=== PATIENT | male | born 1945 | race Caucasian/White ===

== ENCOUNTER 2017-07-31 11:02 | Emergency (ER) | payer OTHER ==
[~2017-07-31] VITALS: Ht 182.9 cm; Wt 117.9 kg
[2017-07-31] MEDS: HYDROcodone-ACET 10/325MG TAB PO ONE ×2 (12:30→12:40)
[2017-07-31] MEDS ORDERED: FUROSEMIDE 40 MG/4 ML VIAL IV ONE (12:30)
[2017-07-31 12:58] LABS: Basophils # (auto) 0.1 uL; Basophils % (auto) 0.7 % (0.0-2.0); Eosinophils # (auto) 0.1 uL; Eosinophils % (auto) 1.4 % (0.0-7.0); Lymphocytes # (auto) 1.5 uL; Monocytes # (auto) 0.8 uL; Nucleated Red Blood Cells % 0.1 %; Red Cell Distribution Width 18.1 % (11.8-14.3)
[2017-07-31 13:00] LABS: Hematocrit 33.8 % (41.0-53.0); Hemoglobin 10.7 g/dL (13.5-17.5); Mean Corpuscular Hgb Conc. 31.5 g/dL (32.0-36.0); Mean Corpuscular Volume 73.1 fL (80.0-100.0); Mean Platelet Volume 8.3 fL (6.9-10.8); Monocytes % (auto) 9.9 % (0.0-12.0); Neutrophils # (auto) 5.3 uL; Platelet Count (auto) 225 10^3/uL (140-450); White Blood Cell 7.7 10^3/uL (4.4-10.8)
[2017-07-31] MEDS ORDERED: FUROSEMIDE 40 MG TAB PO ONE (13:00)
[2017-07-31 13:03] LABS: Albumin 3.7 g/dL (3.4-5.0); Anion Gap 10 (5-15); Aspartate Aminotransferase 28 U/L (15-37); BUN/Creatinine Ratio 13.3; Blood Urea Nitrogen 15 mg/dL (7-18); Calcium 8.8 mg/dL (8.5-10.1); Carbon Dioxide 23 mmol/L (21-32); Chloride 107 mmol/L (98-107); GFR African American 82 mL/min; GFR Non-African American 68 mL/min; Glucose 106 mg/dL (74-106); Potassium 3.6 mmol/L (3.5-5.1); Sodium 140 mmol/L (136-145)
[2017-07-31 13:07] LABS: Alkaline Phosphatase 121 U/L (45-117); Bilirubin, Total 1.8 mg/dL (0.2-1.0); Total Protein 8.3 g/dL (6.4-8.2)
[2017-07-31 13:26] VITALS: BP 174/92
[2017-07-31 13:26] LABS: INR 2.13 (0.9-1.15); Partial Thromboplastin Time 35.9 sec (22.64-33.71); Prothrombin Time 23.4 sec (9.37-12.3)
== END 2017-07-31 14:26 | disposition home or self-care (01) ==
LOC: ER 11:02
DX: R04.0 Epistaxis (principal); I48.91 Unspecified atrial fibrillation; I10 Essential (primary) hypertension; Z88.8 Allergy status to other drugs, medicaments and biological substances; Z95.0 Presence of cardiac pacemaker; Z79.01 Long term (current) use of anticoagulants
CPT/HCPCS: 30901; 36415; 71010; 80053; 84484; 85025; 85610; 85730